=== PATIENT | male | born 2000 | race Caucasian/White ===

== ENCOUNTER 2024-04-16 19:19 | Emergency (ER) | payer OTHER, SELFPAY ==
[2024-04-16 19:21] VITALS: BP 134/87; PULSE 71; RESP 18; TEMP 36.5; O2SAT 99
--- NOTE | 2024-04-16 19:38 | ED.GENADULT ---
HPI - General Adult General Chief complaint: Eye Problems Stated complaint: eye issues Time Seen by Provider: 04/16/24 19:38 Source: patient Mode of arrival: ambulatory Limitations: no limitations History of Present Illness HPI narrative: patient was mowing the grass today at 10:00 a.m. and the dust flew up and he felt like he got something in his right eye. He went inside walked his eye out and he also took a shower and rinse his eye out again before came to the emergency department. He has pain in the right eye watery and redness and a foreign body sensation in his upper lid. Says he is seeing well without any double vision or blurred vision. Rates his pain as a 5/10. He wears glasses. He feels like it is worse when he is looking straight ahead or to the left. Patient came in with his father. Denies any problems eating or drinking voiding or stooling fever cough sore throat runny nose difficulty breathing problems walking talking seeing or hearing swelling lumps or bumps dizziness or lightheadedness rash or itching bleeding or bruising weakness or numbness or any other complaints . Allergies none Past medical history nothing significant Related Data Home Medications Medication Instructions Recorded Confirmed Zyrtec 10 mg PO DAILY 04/16/24 04/16/24 Allergies Allergy/AdvReac Type Severity Reaction Status Date / Time No Known Allergies Allergy Verified 04/16/24 19:31 Review of Systems Review of Systems: All systems reviewed & are unremarkable except as noted in HPI and below Exam Narrative: white male no apparent distress right eye injected watery without discharge conjunctiva is inflamed, extraocular movements are intact. Pupils are equal round reactive to light. His left eye looks normal. His conjunctiva may be a little bit inflamed. fluorescein exam was negative for any uptake of dye. His right eyelid was everted there was no foreign body seen in the eye. Or under the eyelid either. Course Vital Signs Vital signs: Vital Signs Temperature 36.5 C 04/16/24 19:21 Pulse Rate 71 04/16/24 19:21 Respiratory Rate 18 04/16/24 19:21 Blood Pressure 134/87 04/16/24 19:21 Pulse Oximetry 99 04/16/24 19:21 Oxygen Delivery Room Air 04/16/24 19:21 Temperature 36.5 C 04/16/24 19:21 Pulse Rate 71 04/16/24 19:21 Respiratory Rate 18 04/16/24 19:21 Blood Pressure 134/87 04/16/24 19:21 Pulse Oximetry 99 04/16/24 19:21 Oxygen Delivery Room Air 04/16/24 19:21 Medical Decision Making MDM Narrative Medical decision making narrative: ? Patient placed in room: 1 with his father ? History and physical was performed. Independent Historian: father External Source Review: Differential Dx includes but not limited to: foreign body conjunctivitis corneal abrasion Medications were Reviewed: home meds reviewed Medications given: fluorescein exam using tetracaine was used and then the patient was given ciprofloxacin eye drops 2 drops to both eyes. The right eye was irrigated clear with saline flush. [place] 5 /325 p.o. Independently Interpreted by me: Shared decision Making: evaluation was discussed with patient's father all questions were asked and answered and they agreed with the plan. ciprofloxacin eye drops 2 drops both eyes q.4 hours for 7 days. Tylenol and/or ibuprofen for pain as needed follow-up with primary care provider next week. Social Situation Impacting Patients Care: DISCHARGE DIAGNOSIS: Conjunctivitis DISPOSITION: discharge home CONDITION AT DISCHARGEStable Vital Signs Vital Signs: Vital Signs Temperature 36.5 C 04/16/24 19:21 Pulse Rate 71 04/16/24 19:21 Respiratory Rate 18 04/16/24 19:21 Blood Pressure 134/87 04/16/24 19:21 Pulse Oximetry 99 04/16/24 19:21 Oxygen Delivery Room Air 04/16/24 19:21 Temperature 36.5 C 04/16/24 19:21 Pulse Rate 71 04/16/24 19:21 Respiratory Rate 1
--- NOTE | 2024-04-16 19:42 | PC.NURSE ---
patient resting on stretcher with father at his side. eye tray supplies obtained by Rula bourgeois.
[2024-04-16] MEDS: FLUORESCEIN SOD 1 MG/STRIP RIGHT EYE (20:22)
[2024-04-16] MEDS: TETRACAINE HCL 0.5% OPHTH SOLN 4 ML BTL 2 DROP RIGHT EYE (20:22)
[2024-04-16] MEDS: SALINE LOCK FLUSH 2 ML XX (21:00)
--- NOTE | 2024-04-16 21:00 | PC.NURSE ---
right eye irrigation completed with ns. patient states i think it (foreign body) moved. i dont feel it anymore . father at the bedside.
[2024-04-16] MEDS: HYDROcodone/acetaminophen (*CRX) 5-325 MG TABLET 1 TAB PO (21:06)
[2024-04-16] MEDS: CIPROFLOXACIN HCL 0.3% OP SOLN 2.5 ML BTL 2 DROP EACH EYE (21:14)
== END 2024-04-16 21:30 | disposition home or self-care (01) ==
PROVIDERS: Emergency Provider Emergency Medicine; PCP Family Medicine
DX: H10.9 Unspecified conjunctivitis (principal)
CPT/HCPCS: 99283; A9270